=== PATIENT | female | born 1950 | race Caucasian/White ===

== ENCOUNTER 2022-04-24 08:45 | Day surgery (SDC) | payer MEDICARE ==
[~2022-04-24] VITALS: Ht 165.1 cm; Wt 65.9 kg
[~2022-04-24 08:45] MED LIST: ALBU90OI INH; ANORO ELLIPTA1 EACH INH; ATOR40TA PO; CONEST.625 PO; ELIQUIS5 M2 PO; Evoxac30 MG PO; KLOR-CON 1010 ME1 PO; METO25ER PO; Norco 5-325 Ta1 EACH PO
--- NOTE | 2022-04-24 09:36 | NUR ---
04/24/22 0936 Tami Landin TETRACAINE TO LEFT EYE AT 0920 PLEDGET TO LEFT EYE AT 0921 BY [email or web address]
== END 2022-04-24 11:05 | disposition home or self-care (01) ==
LOC: ORSCSDS 08:45
PROVIDERS: Student in an Organized Health Care Education/Training Program
PROC: 08RK3JZ Replacement of Left Lens with Synthetic Substitute, Percutaneous Approach (ICD-10-PCS; principal; 2022-04-24 10:30)
DX: H25.12 Age-related nuclear cataract, left eye (principal); I25.10 Atherosclerotic heart disease of native coronary artery without angina pectoris; J44.9 Chronic obstructive pulmonary disease, unspecified; Z87.891 Personal history of nicotine dependence; Z99.81 Dependence on supplemental oxygen; Z86.718 Personal history of other venous thrombosis and embolism; Z79.01 Long term (current) use of anticoagulants; Z79.899 Other long term (current) drug therapy; M35.00 Sjogren syndrome, unspecified
CPT/HCPCS: J2001; J2250; J3010; J7040; V2632

== ENCOUNTER 2022-05-01 09:03 | Day surgery (SDC) | payer MEDICARE | END 2022-05-01 11:30 | disposition home or self-care (01) | DX: H25.11 Age-related nuclear cataract, right eye (principal); Z96.1 Presence of intraocular lens; J44.9 Chronic obstructive pulmonary disease, unspecified; I25.10 Atherosclerotic heart disease of native coronary artery without angina pectoris; M35.00 Sjogren syndrome, unspecified; Z79.899 Other long term (current) drug therapy ==